=== PATIENT | female | born 1965 | race Caucasian/White ===

== ENCOUNTER 2017-08-04 22:59 | Emergency (ER) | payer BC ==
[2017-08-05] MEDS ORDERED: Ketorolac Tromethamine 30 MG/ML VIAL ONE (01:47)
[2017-08-05] MEDS ORDERED: HYDROcodone/Acetaminophen 10/325 mg Tablet ONE (02:27)
--- NOTE | 2017-08-05 09:41 | RAD ---
4 VIEWS LEFT KNEE: Date: 08/05/17 HISTORY: Torn MCL 3 weeks ago. Pain. COMPARISON: None. FINDINGS: Mild degenerative changes in the medial compartment. No fracture or malalignment. No joint effusion. IMPRESSION: Mild degenerative changes in the medial compartment. POS: [facility]
== END 2017-08-05 02:45 | disposition home or self-care (01) ==
LOC: ERS 22:59
DX: S86.812A Strain of other muscle(s) and tendon(s) at lower leg level, left leg, initial encounter (principal); I10 Essential (primary) hypertension; F41.9 Anxiety disorder, unspecified; X50.1XXA Overexertion from prolonged static or awkward postures, initial encounter
CPT/HCPCS: 96372; J1885

== ENCOUNTER 2018-05-29 12:01 | Outpatient (CLI) | payer OTHER, BC ==
--- NOTE | 2018-05-29 13:27 | RAD ---
AP PELVIS: HISTORY: Back pain. FINDINGS: This examination was done standing per physician request. SI joints are symmetric. There are some m inimal arthritic changes of both hips. No fractures or other findings. 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 POS: [facility]
--- NOTE | 2018-05-29 13:27 | RAD ---
LUMBAR SPINE SERIES TWO VIEWS: HISTORY: Low back pain. FINDINGS: Vertebral bodies are normal in height. Disk spaces appear well preserved. No spondylolisthesis. De generative facet changes at L5-S1 are noted. IMPRESSION: Degenerative facet changes at the L5-S1 level. POS: [place]
== END 2018-05-29 12:02 | disposition home or self-care (01) ==
LOC: BICRAD 12:01
DX: M54.5 Low back pain (principal); M53.86 Other specified dorsopathies, lumbar region; M16.0 Bilateral primary osteoarthritis of hip; M47.816 Spondylosis without myelopathy or radiculopathy, lumbar region
CPT/HCPCS: 72100; 72170

== ENCOUNTER 2019-02-12 14:19 | Outpatient (CLI) | payer OTHER, BC ==
--- NOTE | 2019-02-12 15:09 | MMO ---
Bilateral MAMMO Bilat Screen [facility]. CLINICAL HISTORY: Patient is 53 years old and is seen for screening. The patient has the following family history of breast cancer: mother. The patient has no personal history of cancer. VIEWS: The views performed were: bilateral craniocaudal; bilateral craniocaudal with tomosynthesis; bilateral mediolateral oblique; and bilateral mediolateral oblique with tomosynthesis. This study has been interpreted with the assistance of computer-aided detection. MAMMOGRAM FINDINGS: There are scattered fibroglandular densities. There are benign appearing calcifications seen in both breasts. There are no suspicious masses, suspicious calcifications, or new areas of architectural distortion. IMPRESSION: THERE IS NO MAMMOGRAPHIC EVIDENCE OF MALIGNANCY. A ROUTINE FOLLOW-UP MAMMOGRAM IN 1 YEAR IS RECOMMENDED. THE RESULTS OF THIS EXAM WERE SENT TO THE PATIENT. ACR BI-RADS Category 2 - Benign finding MAMMOGRAPHY NOTE: 1. A negative mammogram report should not delay a biopsy if a dominant of clinically suspicious mass is present. 2. Approximately 10% to 15% of breast cancers are not detected by mammography. 3. Adenosis and dense breasts may obscure an underlying neoplasm. Reported by: UMM CARVAJAL MD Electonically Signed: [id number]
== END 2019-02-12 14:20 | disposition home or self-care (01) ==
LOC: BICMAMMO 14:19
PROVIDERS: ATTEND Family Medicine
DX: Z12.31 Encounter for screening mammogram for malignant neoplasm of breast (principal); Z80.3 Family history of malignant neoplasm of breast
CPT/HCPCS: 77063; 77067

== ENCOUNTER 2020-04-27 15:49 | Outpatient (CLI) | payer BC ==
--- NOTE | 2020-04-27 16:19 | MMO ---
Bilateral MAMMO Bilat Screen [facility]. CLINICAL HISTORY: Patient is 54 years old and is seen for screening. The patient has the following family history of breast cancer: mother. The patient has no personal history of cancer. VIEWS: The views performed were: bilateral craniocaudal with tomosynthesis and bilateral mediolateral oblique with tomosynthesis. FILMS COMPARED: The present examination has been compared to a prior imaging study performed at [facility] on 02/12/2019. This study has been interpreted with the assistance of computer-aided detection. MAMMOGRAM FINDINGS: There are scattered fibroglandular densities. Benign calcifications are noted bilaterally. There are no suspicious masses, suspicious calcifications, or new areas of architectural distortion. IMPRESSION: THERE IS NO MAMMOGRAPHIC EVIDENCE OF MALIGNANCY. A ROUTINE FOLLOW-UP MAMMOGRAM IN 1 YEAR IS RECOMMENDED. THE RESULTS OF THIS EXAM WERE SENT TO THE PATIENT. ACR BI-RADS Category 2 - Benign finding MAMMOGRAPHY NOTE: 1. A negative mammogram report should not delay a biopsy if a dominant of clinically suspicious mass is present. 2. Approximately 10% to 15% of breast cancers are not detected by mammography. 3. Adenosis and dense breasts may obscure an underlying neoplasm. Reported by: SINAN LOWE MD Electonically Signed: [id number]
== END 2020-04-27 15:50 | disposition home or self-care (01) ==
LOC: BICMAMMO 15:49
PROVIDERS: ATTEND Family Medicine
DX: Z12.31 Encounter for screening mammogram for malignant neoplasm of breast (principal); Z80.3 Family history of malignant neoplasm of breast
CPT/HCPCS: 77063; 77067

== ENCOUNTER 2022-08-31 10:33 | Outpatient (CLI) | payer BC | END 2022-08-31 10:34 | disposition home or self-care (01) | LOC: BICMAMMO 10:33 | PROVIDERS: ATTEND Family Medicine | DX: Z12.31 Encounter for screening mammogram for malignant neoplasm of breast (principal) | CPT/HCPCS: 77063; 77067 ==

== ENCOUNTER 2023-10-30 09:52 | Outpatient (CLI) | payer BC | END 2023-10-30 09:53 | disposition home or self-care (01) | LOC: BICMAMMO 09:52 | PROVIDERS: ATTEND Family Medicine | DX: Z12.31 Encounter for screening mammogram for malignant neoplasm of breast (principal); Z80.3 Family history of malignant neoplasm of breast | CPT/HCPCS: 77063; 77067 ==